=== PATIENT | male | born 1950 | race Caucasian/White ===

== ENCOUNTER → 2016-10-10 | Outpatient (CLI) | payer OTHER ==
[~2016-10-10] VITALS: Ht 177.8 cm; Wt 84.4 kg
[~2016-10-10] MED LIST: ASPIR-LOW81 MG PO; CITALOPRAM10 MG PO; CLONAZEPAM1 MG PO; DAYPRO600 M1 PO; DOCUSATE SODIU100 M2; FLOMAX0.4 MG PO; LEVAQUIN750 MG PO; LISINOPRIL40 MG PO; OMEPRAZOLE20 MG PO; OXYCODONE5 M1 PO; PERCOCET 325 MG1 TA6 PO; PROMETHAZINE25 M1 PO; ROBAXIN750 MG PO; SENOKOT1 TAB PO; TOPROL XL100 MG PO; ULTRAM50 MG PO; ZYRTEC10 M3 PO
[2016-10-10 11:59] LABS: BILIRUBIN NEGATIVE (NEGATIVE); BLOOD TRACE-INTACT (NEGATIVE); CLARITY CLEAR (CLEAR); COLOR YELLOW (YELLOW); GLUCOSE NEGATIVE (NEGATIVE); KETONE NEGATIVE (NEGATIVE); LEUKO ESTERASE NEGATIVE (NEGATIVE); NITRITE NEGATIVE (NEGATIVE); PH 5.5 (5.0-9.0); PROTEIN NEGATIVE (NEGATIVE); SPECIFIC GRAVITY <= 1.005 (1.005-1.030); UROBILINOGEN 0.2 E.U./dl (0.2-1.0)
[2016-10-10 12:15] LABS: BASO # 0.1 10*3/uL (0.0-0.1); BASO % 0.6 % (0.0-1.0); EOS # 0.2 10*3/uL (0.0-0.4); EOS % 1.9 % (1.0-4.0); HEMATOCRIT 43.9 % (42.0-52.0); IG # 0.1 10*3/uL (0.0-0.1); LYMPH % 35.9 % (27.0-41.0); MEAN CELL VOLUME 89.2 fl (80.0-94.0); MEAN CORPUSCULAR HGB 30.5 pg (27.0-31.0); MEAN CORPUSCULAR HGB CONC 34.2 g/dl (33.0-37.0); MEAN PLATELET VOLUME 8.9 fl (9.6-12.3); MONO # 0.6 10*3/uL (0.1-1.0); MONO % 5.4 % (3.0-9.0); NEUT # 6.1 10*3/uL (2.3-7.9); NEUT % 55.7 % (47.0-73.0); PLATELET COUNT AUTOMATED 332 10*3/uL (130-400); RED BLOOD COUNT 4.92 10*6/uL (4.50-5.90); RED CELL DISTRI WIDTH 13.3 % (0-14.5)
[2016-10-10 12:16] LABS: BACTERIA TRACE; CALCIUM OXALATE CRYSTALS TRACE; RBC 0-2 rbc/hpf (0-2)
[2016-10-10 12:31] LABS: BUN 7 mg/dl (7-24); CARBON DIOXIDE 27 mmol/L (21-32); CHLORIDE 105 mmol/L (98-107); EST GLOM FILT AFRICAN AMERICAN > 60 ml/min; GLUCOSE 87 mg/dL (65-99); POTASSIUM 3.8 mmol/L (3.5-5.1); SODIUM 140 mmol/L (136-145)
[2016-10-10 12:39] LABS: INTERNATIONAL NORM RATIO 0.9 (2.0-3.5); PROTHROMBIN TIME 9.5 SECONDS (9.0-12.4)
== END | disposition home or self-care (01) ==
LOC: SDC 11:00 → LAB 14:17 → SDC 10-12 01:24 → EDSTATUS 10-12 11:00 → SDC 10-12 11:00
PROVIDERS: Surgery
DX: Z01.818 Encounter for other preprocedural examination (principal); K40.90 Unilateral inguinal hernia, without obstruction or gangrene, not specified as recurrent; R10.9 Unspecified abdominal pain; J18.9 Pneumonia, unspecified organism

== ENCOUNTER → 2016-11-01 | Outpatient (CLI) | payer OTHER | END | disposition home or self-care (01) | LOC: RAD 09:33 | DX: J18.8 Other pneumonia, unspecified organism (principal); I10 Essential (primary) hypertension; R91.8 Other nonspecific abnormal finding of lung field ==

== ENCOUNTER → 2017-06-19 | Outpatient (CLI) | payer OTHER | END | disposition home or self-care (01) | LOC: RAD 11:17 | DX: J84.10 Pulmonary fibrosis, unspecified (principal); F17.210 Nicotine dependence, cigarettes, uncomplicated; Z87.01 Personal history of pneumonia (recurrent) ==

== ENCOUNTER → 2017-11-30 | Outpatient (CLI) | payer OTHER | END | disposition home or self-care (01) | LOC: CARD 09:11 | DX: I07.1 Rheumatic tricuspid insufficiency (principal); J44.9 Chronic obstructive pulmonary disease, unspecified; Z79.899 Other long term (current) drug therapy ==

== ENCOUNTER → 2017-12-06 | Outpatient (CLI) | payer OTHER ==
--- NOTE | ~2017-12-06 | PF ---
[place], [place] PULMONARY FUNCTION TEST NAME: ZACK NOEL UNIT #: [id number] ROOM: DOCTOR: KOREY MARCUS MD,CALE BIRTHDATE: [birth year] DOS: 12/06/2017 ORDERED BY: Dr. Kelsi Stone. HISTORY: The patient noted 66-year-old male, height of 70 inches, weight of 196 pounds, BMI 28.1. The testing was done for diagnosis of COPD. Ongoing symptom of shortness of breath with exertion and productive cough reported. Past tobacco use noted, 1 pack of cigarettes per day for 52 years. Tobacco cessation was noted less than one year. SPIROMETRY: The FVC was recorded at 2.45 liters at 54% predicted value, moderately severely decreased. The FEV1 noted at 1.98 liters at 59% predicted value, moderately decreased. Ratio of FEV1/FVC was noted at 74%. No significant postbronchodilator changes were noted. Assessment of the flow volume loop for the patient was suggestive of mild obstructive airway pattern with restrictive component was seen. LUNG VOLUME: Thoracic gas volume recorded as 49%, residual volume 32% and total lung capacity 46%, which was severely decreased. The patient's lung diffusion without correction of carbon monoxide noted as 24%. The patient's airway resistance and passive conductance were noted as normal partial improvement post-bronchodilator test. FINAL IMPRESSION: Evidence of severe restrictive lung disease. The patient's etiology unclear with evidence of mild obstructive lung disease was noted as well. Severe lung diffusion was also noted. The current abnormal finding is to be correlated with patient's clinical history for restrictive lung disease including the radiology data. CALE NAIR MD CM:PFREPORT:PULMONARY FUNCTION TEST [id number] [id number] CALE MARCUS MD
== END | disposition home or self-care (01) ==
LOC: CP 07:56
DX: J44.9 Chronic obstructive pulmonary disease, unspecified (principal)

== ENCOUNTER → 2017-12-18 | Outpatient (CLI) | payer OTHER | END | disposition home or self-care (01) | LOC: RAD 09:24 | DX: J44.1 Chronic obstructive pulmonary disease with (acute) exacerbation (principal) ==

== ENCOUNTER 2017-12-27 15:41 | Inpatient (IN) | payer OTHER ==
[~2017-12-27] VITALS: Ht 177.8 cm; Wt 82.2 kg
--- NOTE | ~2017-12-27 | CON ---
[place], [place] REPORT OF CONSULTATION NAME: [facility]EL [id number] UNIT #: [id number] ROOM: 411 DOCTOR: CALE RESENDIZ MD BIRTHDATE: [birth year] DOS: 12/28/2017 PULMONARY CONSULTATION EVALUATION PRIMARY CARE ATTENDING: Dr. Mi Amezquita. CONSULTATION REQUESTED BY: Hospitalist Services. REASON FOR CONSULTATION: To assess the patient for abnormal CT scan of the chest findings. HISTORY OF PRESENT ILLNESS: This is a 67-year-old white male patient not feeling well over a month. The patient was reported symptoms of shortness breath, but the main symptoms occurs with exertion, resolves at rest. He has not been noted any cough, sputum expectoration, or chest pain. Denies symptoms of wheezing. Denies symptoms of hemoptysis. The patient had seen the primary care physician. The patient was scheduled an appointment to be seen in my office for next week. He was seen by the primary care physician recently who has treated the patient with doxycycline, corticosteroids, bronchodilators home setting, but the patient is not responding to treatment. He had a CT scan of the chest, which was done on the day of admission, which was noted with bilateral pulmonary infiltration in the lungs, mostly in the periphery. The patient had been hospitalized for further treatment. He was noted quite anxious and would like to be discharged home if possible. The patient denies symptoms of hemoptysis. Shortness of breath essentially remains unchanged. REVIEW OF SYSTEMS: CONSTITUTIONAL: Denies symptoms of fever or chills noted with somewhat fatigued. Denies any night sweats or abnormal weight loss. EYES: Denies burning, redness, tenderness or discharge. EARS, NOSE, THROAT SYMPTOMS: No sore throat, hoarseness, otalgia, postnasal drainage or epistaxis. GASTROINTESTINAL: Denies dysphagia, nausea, vomiting, diarrhea, abdominal pain, hematemesis, melena, hematochezia, or dysphagia. CARDIOVASCULAR SYSTEM: Denies angina pain, edema, pain in lower extremities. GENITOURINARY SYMPTOMS: Denies dysuria, suprapubic pain, or hematuria. MUSCULOSKELETAL: There were no acute joint pain, redness, or tenderness. SKIN: Denies any abnormal lesions or rashes. CENTRAL NERVOUS SYSTEM: Denies any headache, diplopia, syncopal episodes or tingling sensation of the extremities. The remaining systems were reviewed, they were noted all negative. PAST MEDICAL HISTORY: 1. Reported as history of chronic obstructive pulmonary disease. 2. Essential hypertension. 3. Prostate cancer diagnosed 10 years ago. No acute change in general anxiety disorder or depression. 4. History of cancer of the prostate with radiation seed implantation 10 years ago. [place], [place] REPORT OF CONSULTATION NAME: ZACK NOEL UNIT #: [id number] ROOM: [facility] DOCTOR: CALE RESENDIZ MD BIRTHDATE: [birth year] SOCIAL HISTORY: The patient is and lives at home. He has four children. Denies any history of alcohol use or illicit drug use. The patient used to smoke between half to a pack of cigarettes per day that was discontinued in 2017. Denies any history of alcohol use or any illicit drugs. The patient does not have any occupation related pulmonary exposure history. FAMILY HISTORY: Both parents of complication related to coronary artery disease. HOME MEDICATIONS: Listed as use of doxycycline previously Klonopin, citalopram, BuSpar, Breo Ellipta, DuoNeb, Toprol-XL, and sertraline. DRUG ALLERGY HISTORY: Reported: 1. PENICILLIN. 2. SULFA drug. 3. IVP DYE. PHYSICAL EXAMINATION: GENERAL: The patient is a 67-year-old male who has been currently noted to be awake and alert, free of any acute distress. Height of 5 feet 10 inches, weight of 181 pounds, BMI 26. VITAL SIGNS: Normal temperature, respiratory rate 18-20, heart rate of 94-86, blood pressure 135/83 to 111/76. The pulse oxygen saturation on room air 97% saturation. HEENT: Shows head was atraumatic. Eyes nonicterus. NECK: Supple. CARDIOVASCULAR: S1, S2 audible. LUNGS: Decreased breath sounds bilaterally. There were no crackles, wheezing heard. ABDOMEN: Soft, nontender. Bowel sounds present. EXTREMITIES: Without any acute edema. SKIN: Visible skin, no lesions or rashes. MUSCULOSKELETAL: Without any acute deformities. CENTRAL NERVOUS SYSTEM: Cranial nerves 2-12 intact. LABORATORY DATA: Lactic acid admission 2.1. CBC, WBC count 14.2, normal hemoglobin and hematocrit yesterday as well. Lactic acid noted variably elevated different levels up to 5.4-4.2. The CMP that was done on admission noted with normal BUN and creatinine. The CMP that was done this morning shows BUN 12, creatinine 1.35, glucose 184. The C-reactive protein obtained today was 2.4, minimally elevated ESR mildly elevated at 44. The PT/INR was 1.0. CBC this morning, WBC count 7.6, hemoglobin 13.0, hematocrit was 40.5, platelet count was normal. Arterial blood gas yesterday 2 liters, pH of 7.43, pCO2 of 25, pO2 of 81. Review of the radiology data, the chest x-ray that was done on 12/18/2017 was noted with bilateral infiltration was noted. Chest x-ray that was done on 06/19/2017 shows bilateral pulmonary changes with fibrosis or other etiologies has been considered. CT scan of the chest that was done showed mild mediastinal and hilar lymphadenopathy at the present time. The patient was noted with significant lung damage with a large area of emphysema, which is a [place], [place] REPORT OF CONSULTATION NAME: SADIEZACK Pavithra UNIT #: [id number] ROOM: [facility] DOCTOR: KOREY [facility]ARC[facility] BIRTH[facility]: [birth year] panlobular noted in the right lower lobe. Infiltration noted mostly bilaterally. The findings were not noted consistent with UIP. NSIP finding was noted with area of consolidation and ground glass opacities bilaterally. The trachea was noted larger in size with the tracheomegaly. IMPRESSION: The patient has been currently noted with bilateral pulmonary infiltration, which has been noted chronic current symptoms at this time does not suggest as an acute pneumonia. However, superimposed acute inflammatory condition can be excluded. 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 However, the malignancy should be considered excluded as the patient has been noted with past history of prostate cancer treated 10 years ago with radiation seed implantation. The patient with chronic obstructive pulmonary disease with a past history of long tobacco use. The patient with cessation that was done in 2017. PLAN OF MANAGEMENT: The patient is quite eager to be discharged, should be assessed for the oxygen supplementation at this time, could be discharged home on oral Levaquin and tapering dose of prednisone. Bronchoscopy was planned to be done, but he would like to get it done as an outpatient, which has been scheduled to be done as an outpatient. In the meantime continue other supportive therapy, plan of management and care. Additional treatment changes needs to be done based on progression of the illness. The patient was also ordered a CEA level as well as the workup for the connective tissue disorder serology and others. TB Gold test was also ordered part of the testing. This has been managed. The patient has been discussed with Dr. Mi Amezquita, who is the primary care attending for the patient today. CALE NAIR MD CM:CONSTR:REPORT OF CONSULTATION 1225 12/29/17 0110 interface
[~2017-12-27 15:41] MED LIST changes: -BREO ELLIPTA 11 EACH INH; -BUSPAR5 MG PO; -DOXYCYCLINE100 M3 PO; -Ipratropium Brom3 ML INH; -PREDNISONE10 MG PO; -SERTRALINE HYD100 MG PO; -SPIRIVA RESPIMAT4 GM INH; -VITAMIN D-32000 UNIT PO
[2017-12-27 15:52] VITALS: BP 110/71
[2017-12-27] MEDS ORDERED: DOXYCYCLINE100 M3 PO (15:57)
[2017-12-27] MEDS ORDERED: BREO ELLIPTA 11 EACH INH (15:59)
[2017-12-27] MEDS ORDERED: Ipratropium Brom3 ML INH (15:59)
[2017-12-27] MEDS ORDERED: BUSPAR5 MG PO (16:00)
[2017-12-27] MEDS ORDERED: SERTRALINE HYD100 MG PO (16:01)
[2017-12-27 16:41] LABS: BASO # 0.1 10*3/uL (0.0-0.1); BASO % 0.6 % (0.0-1.0); EOS # 0.6 10*3/uL (0.0-0.4); EOS % 3.9 % (1.0-4.0); HEMATOCRIT 42.9 % (42.0-52.0); HEMOGLOBIN 14.2 g/dl (14.0-18.0); LYMPH # 3.6 10*3/uL (1.3-4.4); LYMPH % 25.3 % (27.0-41.0); MEAN CELL VOLUME 86.1 fl (80.0-94.0); MEAN CORPUSCULAR HGB 28.5 pg (27.0-31.0); MEAN CORPUSCULAR HGB CONC 33.1 g/dl (33.0-37.0); MEAN PLATELET VOLUME 8.7 fl (9.6-12.3); NEUT # 8.9 10*3/uL (2.3-7.9); NEUT % 62.4 % (47.0-73.0); PLATELET COUNT AUTOMATED 365 10*3/uL (130-400); RED BLOOD COUNT 4.98 10*6/uL (4.50-5.90); RED CELL DISTRI WIDTH 13.1 % (0-14.5); WHITE BLOOD COUNT 14.2 10*3/uL (4.8-10.8)
[2017-12-27 16:57] VITALS: BP 114/70
[2017-12-27 16:58] LABS: ALBUMIN 3.2 gm/dl (3.1-4.5); ALKALINE PHOSPHATASE 102 U/L (45-117); BUN 11 mg/dl (7-24); CHLORIDE 102 mmol/L (98-107); CREATININE 1.16 mg/dL (0.70-1.30); POTASSIUM 4.1 mmol/L (3.5-5.1); SGOT/AST 18 IU/L (3-35); SGPT/ALT 31 U/L (12-78); SODIUM 136 mmol/L (136-145); TOTAL PROTEIN 7.6 gm/dL (6.4-8.2)
[2017-12-27 18:05] VITALS: BP 111/76
[2017-12-27 18:14] VITALS: BP 125/78
[2017-12-27 20:00] VITALS: BP 120/70
[2017-12-27] MEDS ORDERED: SPIRIVA RESPIMAT4 GM INH (20:03)
[2017-12-27 23:18] LABS: ABG BASE EXCESS -5.2 mmol/L (-2.0-2.0); ABG HCO3 17.2 mmol/l (22-26); ABG O2 SATURATION 97.1 % (95-97); ARTERIAL BLOOD GAS PCO2 25.6 mmHg (35-45); ARTERIAL BLOOD GAS PH 7.439 (7.35-7.45); ARTERIAL BLOOD GAS PO2 81.5 mmHg (80-90)
[2017-12-28] VITALS: BP 103/75
[2017-12-28 06:06] LABS: BASO % 0.1 % (0.0-1.0); EOS # 0.1 10*3/uL (0.0-0.4); EOS % 0.5 % (1.0-4.0); HEMATOCRIT 40.5 % (42.0-52.0); HEMOGLOBIN 13.5 g/dl (14.0-18.0); LYMPH # 1.4 10*3/uL (1.3-4.4); LYMPH % 11.7 % (27.0-41.0); MEAN CELL VOLUME 87.1 fl (80.0-94.0); MEAN CORPUSCULAR HGB CONC 33.3 g/dl (33.0-37.0); MEAN PLATELET VOLUME 8.8 fl (9.6-12.3); MONO # 0.2 10*3/uL (0.1-1.0); MONO % 1.4 % (3.0-9.0); NEUT # 9.8 10*3/uL (2.3-7.9); NEUT % 84.6 % (47.0-73.0); PLATELET COUNT AUTOMATED 358 10*3/uL (130-400); RED BLOOD COUNT 4.65 10*6/uL (4.50-5.90); RED CELL DISTRI WIDTH 13.2 % (0-14.5); WHITE BLOOD COUNT 11.6 10*3/uL (4.8-10.8)
[2017-12-28 06:38] LABS: ALKALINE PHOSPHATASE 97 U/L (45-117); BUN 12 mg/dl (7-24); CHLORIDE 105 mmol/L (98-107); CHOLESTEROL 138 mg/dL (<200); CREATININE 1.35 mg/dL (0.70-1.30); HDL CHOLESTEROL 52 mg/dl (40-60); LDL CHOLESTEROL 74 mg/dL (9-159); PHOSPHOROUS 2.3 mg/dL (2.5-4.9); POTASSIUM 4.5 mmol/L (3.5-5.1); SGOT/AST 15 IU/L (3-35); SGPT/ALT 29 U/L (12-78); SODIUM 139 mmol/L (136-145); TOTAL PROTEIN 7.4 gm/dL (6.4-8.2); TRIGLYCERIDES 59 mg/dl (<150); VLDL CHOLESTEROL 12 mg/dL (6-40)
[2017-12-28 06:42] LABS: THYROID STIM HORMONE (HS) 0.177 uIU/ml (0.358-4.75)
[2017-12-28 07:57] LABS: VITAMIN D, 25-HYDROXY 18.1 ng/mL (30-100)
[2017-12-28 08:00] VITALS: BP 135/83
[2017-12-28] MEDS ORDERED: VITAMIN D-32000 UNIT PO (10:59)
[2017-12-28] MEDS ORDERED: PREDNISONE10 MG PO (10:59)
[2017-12-29 08:13] LABS: IMMUNOGLOBULIN M, QNT 86 mg/dL (20-172); RHEUMATOID ARTHRITIS FACTOR 55.3 IU/mL (0.0-13.9)
[2017-12-31 10:04] LABS: IGG SUBCLASS 1 790 mg/dL (248-810); IGG SUBCLASS 2 304 mg/dL (130-555); IGG SUBCLASS 3 93 mg/dL (15-102); IGG SUBCLASS 4 32 mg/dL (2-96); IMMUNOGLOBULIN G, QNT 1109 mg/dL (700-1600)
[2017-12-31 14:06] LABS: ATYPICAL PANCA <1:20 titer (Neg:<1:20); CYTOPLASMIC (C-ANCA) <1:20 titer (Neg:<1:20)
[2017-12-31 15:08] LABS: ALDOLASE 002030 3.4 U/L (3.3-10.3); ANGIOTENSIN-CONVERTING ENZYME 16 U/L (14-82)
[2018-01-01 06:13] LABS: MITOGEN VALUE 0.92 IU/mL (.); TB Ag MINUS NIL VALUE <0.00 IU/mL (.); TB Ag VALUE 0.02 IU/mL (.); TB GOLD Negative (Negative)
[2018-01-03 06:10] LABS: IMMUNOGLOBULIN IgE 002170 77 IU/mL (0-100)
== END 2017-12-28 14:22 | disposition home or self-care (01) | DRG 189 ==
LOC: ED 15:41 → 4E 17:30 → EDHOLD 17:30 → 4E 17:55
PROVIDERS: Hospitalist; Internal Medicine; Internal Medicine Critical Care Medicine; Physician Assistant
DX: J96.01 Acute respiratory failure with hypoxia (principal); E87.2 Acidosis; J90 Pleural effusion, not elsewhere classified; J82 Pulmonary eosinophilia, not elsewhere classified; J44.1 Chronic obstructive pulmonary disease with (acute) exacerbation; E83.41 Hypermagnesemia; F32.9 Major depressive disorder, single episode, unspecified; D72.829 Elevated white blood cell count, unspecified; D72.810 Lymphocytopenia; R73.9 Hyperglycemia, unspecified; I10 Essential (primary) hypertension; F41.8 Other specified anxiety disorders; Z87.891 Personal history of nicotine dependence; Z88.2 Allergy status to sulfonamides; Z88.0 Allergy status to penicillin; Z91.041 Radiographic dye allergy status; Z85.46 Personal history of malignant neoplasm of prostate; Z82.49 Family history of ischemic heart disease and other diseases of the circulatory system; Z79.2 Long term (current) use of antibiotics; Z79.899 Other long term (current) drug therapy; Z78.9 Other specified health status

== ENCOUNTER → 2017-12-27 | Outpatient (CLI) | payer OTHER ==
[~2017-12-27] MED LIST changes: +BREO ELLIPTA 11 EACH INH; +BUSPAR5 MG PO; +DOXYCYCLINE100 M3 PO; +Ipratropium Brom3 ML INH; +PREDNISONE10 MG PO; +SERTRALINE HYD100 MG PO; +SPIRIVA RESPIMAT4 GM INH; +VITAMIN D-32000 UNIT PO
== END | disposition home or self-care (01) ==
LOC: CT 07:43
DX: J90 Pleural effusion, not elsewhere classified (principal); J84.10 Pulmonary fibrosis, unspecified; Z87.891 Personal history of nicotine dependence

== ENCOUNTER → 2017-12-31 | Day surgery (SDC) | payer OTHER ==
[~2017-12-31] VITALS: Ht 177.8 cm
[~2017-12-31] MED LIST changes: +BREO ELLIPTA 11 EACH INH; +BUSPAR5 MG PO; +DOXYCYCLINE100 M3 PO; +Ipratropium Brom3 ML INH; +PREDNISONE10 MG PO; +SERTRALINE HYD100 MG PO; +SPIRIVA RESPIMAT4 GM INH; +VITAMIN D-32000 UNIT PO
--- NOTE | ~2017-12-31 | PROC NOTE ---
[place], [place] PROCEDURE NOTE NAME: ZACK NOEL UNIT #: [id number] ROOM: DOCTOR: KOREY MARCUS MD,CALE BIRTHDATE: [birth year] DOS: 12/31/2017 PREOPERATIVE DIAGNOSIS: Bilateral pulmonary infiltration. POSTOPERATIVE DIAGNOSES: Bilateral pulmonary infiltration. COMPLICATIONS: None. PROCEDURE DESCRIPTION: Informed consent obtained with the patient. The patient brought to the OR and placed in supine position and the conscious sedation administered in that position. Airway introduced into the mouth. Bronchoscope advanced to the airway into laryngeal area. Epiglottis was seen. Vocal cord seen. Vocal cords were noted yellowish in color moving symmetrically with movements. Bronchoscope advanced to the vocal cords into the tracheal. Lumen does not show any secretion. Ana noted sharp. Right upper, right middle, right lower, left upper, lingular lower bronchi were all examined. A small amount of secretion bronchus, which was cleared out with help of normal saline wash. The specimen obtained for the patient in the right upper lobe for this patient. Procedure well tolerated by the patient except transient hypoxia, treated with supplementation of oxygen. Postoperative findings were discussed with patient's family members in detail. Bronchial washing sent for all the culture for the patient, cytology specimen and cells with differential. CALE NAIR MD CM:PROCNOTE:PROCEDURE NOTE [id number] [id number] CALE MARCUS MD
[2017-12-31 08:00] VITALS: BP 128/62
[2017-12-31 09:13] VITALS: BP 103/64
[2017-12-31 09:28] VITALS: BP 96/68
[2017-12-31 09:43] VITALS: BP 117/68
[2017-12-31 11:06] LABS: BF LYMPHOCYTES 6 %; BF MACROPHAGES 86 %; BF NEUTROPHILS 7 %
[2018-01-01 13:04] LABS: ACID FAST SPEC PROCESSING Concentration (.)
== END ==
LOC: SDC 12-28 12:30
PROVIDERS: Internal Medicine Critical Care Medicine
DX: R91.8 Other nonspecific abnormal finding of lung field (principal); J44.9 Chronic obstructive pulmonary disease, unspecified; I10 Essential (primary) hypertension; Z85.46 Personal history of malignant neoplasm of prostate; F41.9 Anxiety disorder, unspecified; F32.9 Major depressive disorder, single episode, unspecified; Z87.891 Personal history of nicotine dependence; Z79.899 Other long term (current) drug therapy